=== PATIENT | female | born 1980 | race Two or more races ===

== ENCOUNTER 2016-05-29 13:03 | Outpatient (CLI) | payer MEDICAID ==
[2016-05-29 13:30] VITALS: BMI 26.8
== END 2016-05-29 13:42 | disposition home or self-care (01) ==
LOC: FBCOUT 13:03 → FBC 13:07 → FBCOUT 13:42
PROVIDERS: ATTEND Family Medicine
DX: O26.899 Other specified pregnancy related conditions, unspecified trimester (principal); O09.529 Supervision of elderly multigravida, unspecified trimester; Z3A.00 Weeks of gestation of pregnancy not specified

== ENCOUNTER 2016-06-04 06:12 | Inpatient (IN) | payer MEDICAID ==
[2016-06-04 06:36] VITALS: BMI 26.2
[2016-06-04] MEDS ORDERED: OXYTOCIN IN LR 500 ML IV ONE (08:07)
[2016-06-04] MEDS ORDERED: LIDOCAINE Viscous 2% 15 ML UDCUP ONE (09:43)
[2016-06-04] MEDS ORDERED: OXYTOCIN 10 UNITS/ML VIAL ONE (09:43)
[2016-06-04] MEDS ORDERED: LIDOCAINE 1% (PRES FREE) 30 ML VIAL ONE (09:43)
[2016-06-04] MEDS ORDERED: PUMP TUBING ONE (09:43)
[2016-06-04] MEDS ORDERED: MINERAL OIL 25 ML BOT ONE (09:43)
--- NOTE | 2016-06-04 10:16 | PDOC36 ---
Provider Note Note: cc: Admission H&P HPI: 35 y.o. year old ALLEN 06/04/2016, by Last Menstrual Period at 40w0d who presents after SROM earlier this morning at 05:30 am. REVIEW OF SYSTEMS GENERAL:~ No fever or headache EYES:~ No double or blurry vision. CARDIOVASCULAR:~ No chest pain. RESPIRATORY:~ No severe shortness of breath or cough. GASTROINTESTINAL:~ No nausea or vomiting or right upper quadrant pain.~ PSYCHIATRIC:~ No anxiety or depression. PROBLEMS AMA Abnormal 1hr GTT Abnormal LFTs (improving) Anemia Intramural Fibroids (Fundal) OB HISTORY #: 1, Current PSH Cataract Extraction SOC HX Reports that she has never smoked. She has never used smokeless tobacco. She reports that she drinks alcohol. She reports that she does not use illicit drugs. ALL No Known Allergies MEDICATIONS ~ ferrous sulfate (FERROUSUL) 325 (65 FE) MG tablet, Take 1 tablet (325 mg total ) by mouth daily with breakfast., Disp: 30 tablet, Rfl: 11 ~ Vit-Fe Fumarate-FA ( PO), Take by mouth PHYSICAL EXAMINATION VITAL SIGNS:~ AFVSS Estimated body mass index is 26.47 Total weight gain is 6.411 kg (14 lb 2.1 oz) FHT:~ 130s moderate variability positive accelerations negative decelerations category I [place]:~ q3-7 min SVE:~ 1/80/-2 GENERAL:~ No distress CARDIOVASCULAR:~ Regular rate and rhythm, no murmur, JVD or pedal edema. RESPIRATORY:~ Clear to auscultation bilaterally, respiratory effort is nonlabored at rest. GASTROINTESTINAL:~ Gravid no fundal tenderness NEUROLOGIC:~ Deep tendon reflexes are 2+ in the knees.~ Cranial nerves II-XII are grossly intact. PSYCHIATRIC:~ Alert and oriented x3, judgement and memory is intact, mood is pleasant. LABS & STUDIES O+ Antibody- Rubella Immune Hep B- HIV- GC/Chlamydia- Trep- Hgb 12.5 GBS negative ULTRASOUNDS 19 wk - DI, normal anatomy, post placenta, no previa, multiple fibroids, largest 4.8 cm, midline fundal 28 wk - f/u u/s for fibroids, stable, 4 measured, some slightly larger others slightly smaller. ASSESSMENT 35 y.o. year old ALLEN 06/04/2016, by Last Menstrual Period at 40w0d SROMd in labor. PLAN Labor Admit for expectant management. AMA Quad negative, US negative, monitoring is reassuring. Fibroids Fundal, should not inhibit delivery. Anemia Taking FeSO4. Miguelangel Costa MD M[facility]
[2016-06-04 10:45] LABS: HEMATOCRIT 42.9 % (37.0-47.0); HEMOGLOBIN 14.1 gm/l (12.0-16.0); MEAN CORPUSCULAR HEMOGLOBIN 28.3 pg (27.0-31.0); MEAN CORPUSCULAR HGB CONC 32.9 g/dl (33.0-37.0); RED CELL DISTRIBUTION WIDTH 15.2 % (11.5-14.5)
--- NOTE | 2016-06-04 13:12 | PDOC36 ---
Provider Note Note: SUBJECTIVE: Painful contractions with some bloody show OBJECTIVE: VS: AFVSS FHT: 130s moderate variability positive accels negative decels category I [place]: q2-3 min SVE: 2/100/+1 ASSESSMENT: 35 yo G1 at 40 wks gestation in labor PLAN: Cervix is making progress, FHTs reassuring, will continue expectant management.
[2016-06-04] MEDS ORDERED: FENTANYL 100 MCG/2 ML VIAL IV PRN (14:12)
[2016-06-04] MEDS: LACTATED RINGERS 1,000 ML IV SCH ×9 (15:00→23:14)
[2016-06-04] MEDS ORDERED: EPIDURAL PUMP SET ONE (15:06)
[2016-06-04] MEDS ORDERED: LACTATED RINGERS 2,000 ML ONE (15:07)
[2016-06-04] MEDS ORDERED: FENTANYL/ROPIVACAINE EPIDURAL 250 ML EP ONE (15:07)
[2016-06-04] MEDS ORDERED: FENTANYL 100 MCG/2 ML VIAL ONE (15:30)
[2016-06-04] MEDS ORDERED: EPIDURAL PROCEDURE TRAY ONE (15:31)
[2016-06-04] MEDS ORDERED: LIDOCAINE 2% (PRES FREE) 5 ML VIAL ONE (15:31)
[2016-06-04] MEDS ORDERED: EPHEDRINE SULFATE 50 MG/ML 1ML VIAL IV PRN (15:32)
[2016-06-04] MEDS ORDERED: ONDANSETRON 4 MG/2ML 2 ML VIAL IV PRN (15:32)
[2016-06-04] MEDS ORDERED: NALOXONE HCL 0.4 MG/ML VIAL IV PRN (15:32)
[2016-06-04] MEDS ORDERED: SODIUM CHLORIDE 0.9% 500 ML IV PRN (15:32)
[2016-06-04] MEDS ORDERED: NALBUPHINE HCL 20 MG/ML AMP IV PRN (15:32)
[2016-06-04] MEDS ORDERED: METOCLOPRAMIDE HCL 5 MG/ML 2ML VIAL IV PRN (15:32)
[2016-06-04] MEDS ORDERED: LACTATED RINGERS 500 ML IV PRN (15:32)
[2016-06-04] MEDS ORDERED: DIPHENHYDRAMINE HCL 50 MG/1 ML VIAL IV PRN (15:32)
[2016-06-04] MEDS ORDERED: FENTANYL/ROPIVACAINE EPIDURAL 250 ML EP SCH (15:32)
--- NOTE | 2016-06-04 17:38 | PDOC36 ---
Provider Note Note: SUBJECTIVE: Pt comfortable OBJECTIVE: VS: AFVSS FHT: 130s moderate variability positive accels no decels category I [place]: q3-4 minutes SVE: ASSESSMENT: 35 yo G1 at 40 wks gestation in labor PLAN: Progressing, continue expectant management.
[2016-06-04] MEDS ORDERED: OXYTOCIN IN LR 500 ML IV PRN (19:11)
[2016-06-04] MEDS ORDERED: LACTATED RINGERS 1,000 ML IV SCH (19:15)
[2016-06-05] MEDS: LACTATED RINGERS 1,000 ML IV SCH ×4 (00:14→03:49)
[2016-06-05] MEDS ORDERED: LIDOCAINE 1% (PRES FREE) 30 ML VIAL SUB-Q ONE (00:17)
[2016-06-05] MEDS ORDERED: IV START KIT ONE (01:35)
[2016-06-05] MEDS ORDERED: LACTATED RINGERS 1,000 ML ONE (01:36)
[2016-06-05] MEDS ORDERED: OXYCODONE HCL 5 MG TABLET PO PRN (02:07)
[2016-06-05] MEDS ORDERED: LACTATED RINGERS 1,000 ML IV PRN (02:07)
[2016-06-05] MEDS ORDERED: BENZOCAINE/MENTHOL 60 APPLIC/BOT TP PRN (02:07)
[2016-06-05] MEDS ORDERED: MAGNESIUM HYDROXIDE 30 ML UDCUP PO PRN (02:07)
[2016-06-05] MEDS ORDERED: LANOLIN 50 APPLIC/7G TUBE TP PRN (02:07)
[2016-06-05] MEDS ORDERED: SENNOSIDES 8.6 MG TABLET PO PRN (02:07)
[2016-06-05] MEDS ORDERED: ACETAMINOPHEN 325 MG TABLET PO PRN (02:07)
--- NOTE | 2016-06-05 02:22 | PCMDEL ---
Delivery Note - Delivery Delivery (Date): 06/05/16 Delivery (Time): 00:10 Infant Gender: Female Length: 1 ft 8 in Position: OA Umbilical Cord: 3 Vessel Delayed Cord Clamping:: 2-3 min Placenta:: 00:25 EBL:: 500 mL Perineum:: 2nd degree perineal and 2nd degree left sulcal Suture:: 2-0 Vicryl & 3-0 Vicryl Anesthesia/Meds:: Epidural Length ROM:: 19 hrs
[2016-06-05] MEDS: IBUPROFEN 800 MG TABLET PO PRN ×4 (02:35→22:42)
[2016-06-05] MEDS: DOCUSATE SODIUM 100 MG CAPSULE PO PRN (08:44)
[2016-06-06 06:32] LABS: HEMATOCRIT 26.7 % (37.0-47.0); HEMOGLOBIN 8.8 gm/l (12.0-16.0)
[2016-06-06] MEDS: IBUPROFEN 800 MG TABLET PO PRN ×3 (08:30→20:44)
[2016-06-06] MEDS: DOCUSATE SODIUM 100 MG CAPSULE PO PRN (08:30)
[2016-06-06] MEDS: HYDROCODONE/ACETAMINOPHEN 5/325MG TABLET PO PRN ×2 (08:31→12:27)
--- NOTE | 2016-06-06 09:54 | PDOC44 ---
- Subjective Day: 1 Reports Pain Tolerable, Reports , Reports Lochia Light, Reports Tolerating Regular Diet, Denies Nausea, Denies Vomiting, Denies Fever - Objective Temp Pulse Resp BP Pulse Ox 97.9 F 76 16 107/57 06/06/16 07:45 06/06/16 07:45 06/06/16 07:45 06/06/16 07:45 Lab Results 06/06/16 05:10 Hgb 8.8 L D Hct 26.7 L Current Medications Generic Name Dose Route Start Last Admin Trade Name Freq PRN Reason Stop Dose Admin Acetaminophen 325 - 650 mg 06/05/16 02:07 Tylenol PO Q4H PRN Pain (Mild) Acetaminophen/Hydrocodone Bitart 1 - 2 tab 06/05/16 02:07 06/06/16 08:31 [place] 5/325 PO 1 tab Q4H PRN Administration Pain (Moderate) Benzocaine/Menthol 1 applic 06/05/16 02:07 Dermoplast TP PRN PRN Patient Comfort Docusate Sodium 100 mg 06/05/16 02:07 06/06/16 08:30 Colace PO 100 mg DAILY PRN Administration Comfort Emollient Ointment 1 applic 06/05/16 02:07 06/05/16 20:48 [id number] TP 1 applic PRN PRN Administration sore nipples Ropivacaine/Fentanyl/NS 250 mls @ 0 mls/hr 06/04/16 15:32 06/04/16 15:30 Fentanyl 2 Mcg/Ml + Ropivacaine 0.125% Ep Bag EP 10 mls/hr EPI CAROL ANN Administration Protocol Per Protocol Lactated Ringer's 1,000 mls @ 100 mls/hr 06/05/16 02:07 Lactated Ringers IV .Q10H PRN Titrate per clinical situation Ibuprofen 800 mg 06/05/16 02:07 06/06/16 08:30 Motrin PO 800 mg Q6H PRN Administration Pain (Mild) Magnesium Hydroxide 30 ml 06/05/16 02:07 Milk Of Magnesia PO BEDTIME PRN Constipation Oxycodone HCl 5 - 10 mg 06/05/16 02:07 Roxicodone PO Q3H PRN Pain (Severe) Senna 17.2 mg 06/05/16 02:07 Senokot PO BEDTIME PRN Comfort Sodium Chloride 10 ml 06/05/16 02:07 Normal Saline 10ml Flush IV PRN PRN IV Flush Sodium Chloride 10 ml 06/05/16 17:00 06/05/16 22:43 Normal Saline 10ml Flush IV Not Given Q8HR CAROL ANN - Physical Exam General: Afebrile, No Acute Distress Psych/Mental Status: Mood/Affect Appropriate, Bonding Well Neurological: Alert, Oriented x 4 Lungs: Clear to Auscultation Bilaterally Cardiovascular: Regular Rate and Rhythm Breast: Nipples Intact Fundus: Firm, Midline Extremities: Full ROM, No Edema, No Tenderness Skin: Normal Color, Warm, Dry, Intact, No Rash - Problems:Assessment/Plan (1) (normal spontaneous vaginal delivery) Status: AcuteAssessment/Plan: Doing well. Routine pp care Meet with for assistance. (2) AMA (advanced maternal age) multigravida 35+ Status: Acute Disposition: Stable, Anticipate DC Home Tomorrow
[2016-06-06] MEDS: FERROUS SULFATE (65 Fe) 325 MG TABLET PO SCH (14:45)
[2016-06-07] MEDS: IBUPROFEN 800 MG TABLET PO PRN ×2 (02:55→11:47)
[2016-06-07 08:07] VITALS: BP 125/72
[2016-06-07] MEDS: FERROUS SULFATE (65 Fe) 325 MG TABLET PO SCH ×2 (11:48→13:26)
--- NOTE | 2016-06-07 12:10 | PDOC39B ---
Hospital Course: ADMIT DATE: 06/04/16 DISCHARGE DATE: 06/07/16 ADMISSION DIAGNOSES: IUP at 40 w1 d active labor PROCEDURES: HISTORY OF PRESENT ILLNESS: 35 year old G1 T0 L0 at 40 weeks 1 days presenting in active labor. HOSPITAL COURSE: The patient progressed on normal labor curve. Delivered via without complications. She struggled with breast feeding but was assisted greatly with support. partner is very helpful as well. Good maternal bonding. By day of discharge the patient is ambulating, eating, voiding, and passing flatus without difficulty. Pain is controlled and lochia is appropriate. - Physical Exam Vital Signs: Temp Pulse Resp BP Pulse Ox 98.3 F 75 18 125/72 06/07/16 08:02 06/07/16 08:02 06/07/16 08:02 06/07/16 08:02 General: Afebrile, No Acute Distress Neurological: Alert, Oriented x 4 Lungs: Clear to Auscultation Bilaterally Cardiovascular: Regular Rate and Rhythm Fundus: Firm, Midline Extremities: Full ROM, No Edema Skin: Normal Color, Warm, Dry, Intact, No Rash - Discharge Diagnosis (1) (normal spontaneous vaginal delivery) Status: AcuteAssessment/Plan: Doing well. Routine pp care Meet with for assistance. (2) AMA (advanced maternal age) multigravida 35+ Status: Acute - Discharge Plan Condition: Good Disposition: Home Prescriptions: Docusate Sodium [COLACE 100 MG CAPSULE (SHF)] 100 mg PO DAILY PRN #60 capsule PRN Reason: Comfort Ibuprofen [IBUPROFEN 800 MG TABLET (SHF)] 800 mg PO Q6H PRN #60 tablet PRN Reason: Pain (Mild) FERROUS SULFATE (65 Fe) [IRON FERROUS SULFATE 325 MG TABLET (SHF)] 325 mg PO BID #60 tablet Lanolin [LANOLIN 7 G TUBE (SHF)] 1 applic TP PRN PRN #10 tube PRN Reason: Sore Nipples Follow-Up: Mahsa Cueto PA-C [Primary Care Provider] - In 6 weeks
== END 2016-06-07 14:25 | disposition home or self-care (01) | DRG 775 ==
LOC: FBCOUT 06:12 → FBC 06:12 → FBCOUT 08:08 → FBC 08:08
PROVIDERS: ADMIT Family Medicine; ATTEND Family Medicine
PROC: 0KQM0ZZ Repair Perineum Muscle, Open Approach (ICD-10-PCS; principal; 2016-06-05)
PROC: 10E0XZZ Delivery of Products of Conception, External Approach (ICD-10-PCS; 2016-06-05)
DX: O70.1 Second degree perineal laceration during delivery (principal); Z37.0 Single live birth; O09.513 Supervision of elderly primigravida, third trimester; Z3A.39 39 weeks gestation of pregnancy; O99.02 Anemia complicating childbirth; D64.9 Anemia, unspecified